=== PATIENT | female | born 1970 | race Caucasian/White ===

== ENCOUNTER 2020-09-11 07:34 | Observation (INO) ==
[2020-09-11] MEDS ORDERED: Ondansetron 4 mg VIAL 2 MG/ML 2 ml VIAL IV ONE ×2 (07:59→11:07)
[2020-09-11] MEDS ORDERED: NS 0.9% 1000 ml BAG 1,000 ML IV ONE ×2 (07:59→09:41)
[2020-09-11 08:43] LABS: ABS Lymphocytes 0.6 10^3/ul (1.0-4.8); ABS Monocytes 1.1 10^3/ul (0-0.8); ABS Neutrophils 7.9 10^3/ul (1.5-7.7); Eosinophil % 0.2 %; Hematocrit 39 % (35-47); Hemoglobin 13.6 g/dL (12.0-16.0); Lymphocyte % 6.4 %; Mean Corpuscular HGB Conc 35 g/dL (31-36); Mean Corpuscular Hemoglobin 31 pg (27-31); Mean Corpuscular Volume 88 fL (80-97); Mean Platelet Volume 8.4 fL (7.4-10.4); Nucleated Red Blood Cells % 0.1; Platelet Count 176 10^3/uL (150-450); Red Blood Count 4.43 10^6 /uL (3.70-4.87); Red Cell Distribution Width 14 % (10-15); White Blood Count 9.7 10^3/uL (3.5-10.8)
[2020-09-11 09:02] LABS: ALT 242 U/L (7-52); AST 72 U/L (13-39); Albumin 3.7 g/dL (3.2-5.2); Albumin/Globulin Ratio 1.5 (1-3); Alkaline Phosphatase 210 U/L (35-149); Anion Gap 9 mmol/L (2-11); Blood Urea Nitrogen 8 mg/dL (6-24); C Reactive Protein 33.49 mg/L (<8.01); CO2 Carbon Dioxide 25 mmol/L (22-32); Calcium 8.8 mg/dL (8.6-10.3); Chloride 100 mmol/L (101-111); EGFR African American 125.1 (>60); EGFR Non-African American 103.4 (>60); Globulin 2.5 g/dL (2-4); Glucose 127 mg/dL (70-100); Lipase < 10 U/L (11.0-82.0); Potassium 3.6 mmol/L (3.5-5.0); Sodium 134 mmol/L (135-145); Total Protein 6.2 g/dL (6.4-8.9)
[2020-09-11 09:07] LABS: Troponin I 0.06 ng/mL (<0.03)
[2020-09-11 09:31] LABS: Urine Appearance Cloudy; Urine Bilirubin 2+ (Negative); Urine Blood 2+ (Negative); Urine Color Amber; Urine Glucose Negative (Negative); Urine Ketones 1+ (Negative); Urine Nitrite Negative (Negative); Urine Protein 1+(30 mg/dL) (Negative); Urine Specific Gravity 1.023 (1.002-1.030); Urine Urobilinogen Positive (Negative)
[2020-09-11 09:36] LABS: Urine Bacteria 1+ (Absent); Urine Red Blood Cell 3+(>10/hpf) (Absent); Urine Squamous Epithelial Cell Present (Absent); Urine White Blood Cell Trace(0-5/hpf) (Absent)
[2020-09-11 09:40] LABS: INR 1.04 (0.82-1.09)
[2020-09-11] MEDS ORDERED: Morphine 4 MG/ML VIAL (1 ml) IV ONE (10:33)
[2020-09-11 11:56] LABS: Troponin I 0.23 ng/mL (<0.03)
[2020-09-11] MEDS ORDERED: Iohexol 350 (CONTRAST) 500 ML MDV IV ONE (12:49)
[2020-09-11] MEDS: Ondansetron 4 mg VIAL 2 MG/ML 2 ml VIAL IV PRN ×2 (15:44→20:38)
[2020-09-11 16:12] LABS: Troponin I 0.44 ng/mL (<0.03)
[2020-09-11] MEDS ORDERED: Vancomycin 1,000 MG in NS 0.9% 250 ml 250 ML IVPB ONE (16:39)
[2020-09-11] MEDS ORDERED: Cefepime ADVAN 1 GM in NS 0.9% 50 ML 50 ML IVPB SCH (17:00)
[2020-09-11] MEDS ORDERED: Vancomycin per Pharmacy 1 EA NOTE FOLLOW UP SCH (17:00)
[2020-09-11] MEDS: Cefepime 1 GM in Dextrose 1 GM/50 ML BAG IV SCH (17:34)
[2020-09-11 19:31] LABS: Troponin I 0.25 ng/mL (<0.03)
[2020-09-11] MEDS: NS 0.9% 1000 ml BAG 1,000 ML IV SCH (20:50)
[2020-09-11 22:31] LABS: Troponin I 0.19 ng/mL (<0.03)
[2020-09-12] MEDS: Vancomycin 1000 MG in NS 0.9% 250 ML IVPB SCH ×2 (02:09→10:51)
[2020-09-12 03:02] LABS: Hepatitis B Surface Antigen Nonreactive (Nonreactive)
[2020-09-12 03:07] LABS: Hepatitis A Ab IgM Negative (Negative); Hepatitis B Core IgM Nonreactive (Nonreactive)
[2020-09-12] MEDS: NS 0.9% 1000 ml BAG 1,000 ML IV SCH ×2 (04:31→15:18)
[2020-09-12] MEDS: Cefepime 1 GM in Dextrose 1 GM/50 ML BAG IV SCH ×2 (04:34→16:52)
[2020-09-12 05:24] LABS: ABS Lymphocytes 0.8 10^3/ul (1.0-4.8); ABS Monocytes 0.6 10^3/ul (0-0.8); ABS Neutrophils 14.9 10^3/ul (1.5-7.7); Hematocrit 34 % (35-47); Hemoglobin 11.9 g/dL (12.0-16.0); Lymphocyte % 4.7 %; Mean Corpuscular HGB Conc 35 g/dL (31-36); Mean Corpuscular Hemoglobin 31 pg (27-31); Mean Corpuscular Volume 89 fL (80-97); Mean Platelet Volume 8.2 fL (7.4-10.4); Platelet Count 156 10^3/uL (150-450); Red Blood Count 3.85 10^6 /uL (3.70-4.87); Red Cell Distribution Width 14 % (10-15); White Blood Count 16.3 10^3/uL (3.5-10.8)
[2020-09-12] MEDS: Ondansetron 4 mg VIAL 2 MG/ML 2 ml VIAL IV PRN ×3 (05:30→17:20)
[2020-09-12 05:44] LABS: Albumin 3.4 g/dL (3.2-5.2); Albumin/Globulin Ratio 1.5 (1-3); Calcium 8.4 mg/dL (8.6-10.3); EGFR African American 125.1 (>60); EGFR Non-African American 103.4 (>60); Globulin 2.3 g/dL (2-4); Potassium 3.9 mmol/L (3.5-5.0); Total Bilirubin 4.9 mg/dL (0.2-1.0); Total Protein 5.7 g/dL (6.4-8.9)
[2020-09-12 08:41] LABS: Indirect Bilirubin 1.4 mg/dL (0.3-1.0)
[2020-09-12 11:42] LABS: Hepatitis C Antibody Negative (Negative)
[2020-09-12 19:13] VITALS: BP 129/80
[2020-09-13] MEDS ORDERED: Vancomycin Trough Check NOTE FOLLOW UP ONE (09:30)
[2020-09-13 17:32] LABS: Immunoglobulin Subclass IgG4 12.6 mg/dL
[2020-09-13 19:32] LABS: B garinii/B afzelii PCR Negative (Negative); B mayonii PCR Negative (Negative)
[2020-09-13 20:11] LABS: Anaplasma phagocytophilum Negative (Negative); B. miyamotoi PCR, B Negative (Negative); Babesia divergens/MO-1 Negative (Negative); Babesia ducani Negative (Negative); Ehrlichia chaffeensis Negative (Negative); Ehrlichia ewingii/canis Negative (Negative); Ehrlichia muris eauclairensis Negative (Negative)
[2020-09-14 14:04] LABS: Mitochondria M2 Antibody <0.1 U
== END 2020-09-12 18:40 | disposition home or self-care (01) | DRG 722 ==
LOC: ED 07:34 → MED 07:34
PROVIDERS: ADMIT Internal Medicine; ATTEND Hospitalist

== ENCOUNTER 2021-02-07 08:46 | Observation (INO) ==
[2021-02-07 13:31] LABS: ABS Lymphocytes 0.6 10^3/ul (1.0-4.8); ABS Monocytes 0.9 10^3/ul (0-0.8); Eosinophil % 0.1 %; Hematocrit 39 % (35-47); Hemoglobin 13.4 g/dL (12.0-16.0); Lymphocyte % 5.1 %; Mean Corpuscular HGB Conc 34 g/dL (31-36); Mean Corpuscular Hemoglobin 29 pg (27-31); Mean Corpuscular Volume 85 fL (80-97); Mean Platelet Volume 7.7 fL (7.4-10.4); Platelet Count 343 10^3/uL (150-450); Red Blood Count 4.58 10^6 /uL (3.70-4.87); Red Cell Distribution Width 14 % (10-15); White Blood Count 12.6 10^3/uL (3.5-10.8)
[2021-02-07 13:47] LABS: Rapid COVID-19 Molecular Undetected (Undetected)
[2021-02-07 13:50] LABS: Albumin 3.9 g/dL (3.2-5.2); Albumin/Globulin Ratio 1.4 (1-3); C Reactive Protein 109.12 mg/L (<8.01); Calcium 9.2 mg/dL (8.6-10.3); Globulin 2.8 g/dL (2-4); Magnesium 1.9 mg/dL (1.9-2.7); Potassium 4.1 mmol/L (3.5-5.0); Total Bilirubin 0.4 mg/dL (0.2-1.0); Total Protein 6.7 g/dL (6.4-8.9)
[2021-02-07 13:56] LABS: Influenza A Molecular Negative (Negative); Influenza B Molecular Negative (Negative)
[2021-02-07 14:04] LABS: Urine Appearance Clear; Urine Bilirubin Negative (Negative); Urine Blood 1+ (Negative); Urine Color Yellow; Urine Glucose 3+(>=500 mg/dL) (Negative); Urine Ketones Negative (Negative); Urine Nitrite Negative (Negative); Urine Protein Negative (Negative); Urine Specific Gravity 1.013 (1.002-1.030); Urine Urobilinogen Negative (Negative)
[2021-02-07 14:10] LABS: Urine Bacteria Absent (Absent); Urine Red Blood Cell Trace(0-2/hpf) (Absent); Urine Squamous Epithelial Cell Present (Absent); Urine White Blood Cell Trace(0-5/hpf) (Absent)
[2021-02-07 14:15] LABS: Hepatitis B Surface Antigen Nonreactive (Nonreactive)
[2021-02-07 14:20] LABS: Hepatitis A Ab IgM Negative (Negative)
[2021-02-07 14:21] LABS: Hepatitis B Core IgM Nonreactive (Nonreactive)
[2021-02-07 14:33] LABS: Hepatitis C Antibody Negative (Negative)
[2021-02-07] MEDS ORDERED: Levofloxacin 750 MG IVPREMIX 750 MG/150 ML BAG IVPB ONE (16:49)
[2021-02-07] MEDS ORDERED: Azithromycin 500 mg/250 ml NS 500 MG/250 ML BAG IVPB ONE (17:03)
[2021-02-07] MEDS ORDERED: ESTRADIOL 0.05 MG/24 HR TOPICAL SCH (18:00)
[2021-02-07] MEDS: NS 0.9% 1000 ml BAG 1,000 ML IV SCH (21:45)
[2021-02-08 06:41] LABS: INR 1.04 (0.86-1.15)
[2021-02-08 06:55] LABS: Albumin 3.3 g/dL (3.2-5.2); Albumin/Globulin Ratio 1.4 (1-3); C Reactive Protein 98.78 mg/L (<8.01); Calcium 8.3 mg/dL (8.6-10.3); Globulin 2.4 g/dL (2-4); Potassium 3.8 mmol/L (3.5-5.0); Total Bilirubin 0.4 mg/dL (0.2-1.0); Total Protein 5.7 g/dL (6.4-8.9)
[2021-02-08] MEDS ORDERED: SUMAtriptan Subcut 6 MG/0.5 ML VIAL SUBCUT ONE (08:22)
[2021-02-08 08:54] LABS: Troponin I 0.01 ng/mL (<0.03)
[2021-02-08] MEDS ORDERED: fentaNYL 100 mcg/2 ml 50 MCG/ML VIAL ONE (09:55)
[2021-02-08] MEDS ORDERED: Morphine 2 MG/ML SYRINGE IV PRN (16:57)
[2021-02-08] MEDS: cefTRIAXone 1 gm/50 mL NS BAG 1 GM/50 ML BAG IVPB SCH (17:21)
[2021-02-08] MEDS ORDERED: Iohexol 350 (CONTRAST) 500 ML MDV IV ONE (17:24)
[2021-02-08 17:45] LABS: Hematocrit 35 % (35-47); Hemoglobin 11.9 g/dL (12.0-16.0); Mean Corpuscular HGB Conc 34 g/dL (31-36); Mean Corpuscular Hemoglobin 29 pg (27-31); Mean Corpuscular Volume 86 fL (80-97); Mean Platelet Volume 7.6 fL (7.4-10.4); Platelet Count 291 10^3/uL (150-450); Red Blood Count 4.07 10^6 /uL (3.70-4.87); Red Cell Distribution Width 14 % (10-15); White Blood Count 9.2 10^3/uL (3.5-10.8)
[2021-02-08 18:05] LABS: ABS Eosinophils 0.2 10^3/ul (0-0.6); ABS Lymphocytes 1.5 10^3/ul (1.0-4.8); ABS Monocytes 1.1 10^3/ul (0-0.8); ABS Neutrophils 6.3 10^3/ul (1.5-7.7); Eosinophil % 2.5 %; Lymphocyte % 16.1 %
[2021-02-08] MEDS: Morphine 2 MG/ML SYRINGE IV PRN ×2 (19:13→21:38)
[2021-02-08] MEDS: Azithromycin 500 mg/250 ml NS 500 MG/250 ML BAG IVPB SCH (19:24)
[2021-02-09 00:29] LABS: Hematocrit 31 % (35-47); Hemoglobin 10.4 g/dL (12.0-16.0)
[2021-02-09] MEDS: Morphine 2 MG/ML SYRINGE IV PRN ×8 (00:31→23:50)
[2021-02-09] MEDS: NS 0.9% 1000 ml BAG 1,000 ML IV SCH ×2 (02:53→14:05)
[2021-02-09 06:12] LABS: Hematocrit 29 % (35-47); Hemoglobin 10.1 g/dL (12.0-16.0)
[2021-02-09 06:17] LABS: INR 1.05 (0.86-1.15)
[2021-02-09 06:42] LABS: Albumin 3.6 g/dL (3.2-5.2); Albumin/Globulin Ratio 1.4 (1-3); C Reactive Protein 97.15 mg/L (<8.01); Calcium 8.7 mg/dL (8.6-10.3); Globulin 2.6 g/dL (2-4); Potassium 4.3 mmol/L (3.5-5.0); Total Bilirubin 0.4 mg/dL (0.2-1.0); Total Protein 6.2 g/dL (6.4-8.9)
[2021-02-09 11:19] LABS: Hematocrit 29 % (35-47)
[2021-02-09] MEDS: cefTRIAXone 1 gm/50 mL NS BAG 1 GM/50 ML BAG IVPB SCH (16:59)
[2021-02-09 17:34] LABS: Hematocrit 28 % (35-47); Hemoglobin 9.7 g/dL (12.0-16.0)
[2021-02-09] MEDS: Azithromycin 500 mg/250 ml NS 500 MG/250 ML BAG IVPB SCH (17:50)
[2021-02-09] MEDS: Sodium Chloride(INHALANT) 3% 4 ML NEB.SOLN INH ONE ×2 (19:14→20:00)
[2021-02-09 19:19] LABS: Calcium 9.6 mg/dL (8.6-10.3); Potassium 4.7 mmol/L (3.5-5.0)
[2021-02-09 19:23] LABS: Direct Bilirubin 0.1 mg/dL (0.03-0.18); Indirect Bilirubin 0.3 mg/dL (0.3-1.0)
[2021-02-09 23:23] LABS: Hematocrit 26 % (35-47); Hemoglobin 9.1 g/dL (12.0-16.0)
[2021-02-10] MEDS: NS 0.9% 1000 ml BAG 1,000 ML IV SCH ×2 (02:42→12:26)
[2021-02-10 09:05] LABS: Hematocrit 28 % (35-47); Hemoglobin 9.7 g/dL (12.0-16.0); Mean Corpuscular HGB Conc 35 g/dL (31-36); Mean Corpuscular Hemoglobin 30 pg (27-31); Mean Corpuscular Volume 85 fL (80-97); Mean Platelet Volume 6.9 fL (7.4-10.4); Platelet Count 329 10^3/uL (150-450); Red Blood Count 3.28 10^6 /uL (3.70-4.87); Red Cell Distribution Width 13 % (10-15); White Blood Count 12.8 10^3/uL (3.5-10.8)
[2021-02-10 09:13] LABS: INR 1.06 (0.86-1.15)
[2021-02-10 09:21] LABS: Albumin 3.7 g/dL (3.2-5.2); Albumin/Globulin Ratio 1.3 (1-3); C Reactive Protein 80.42 mg/L (<8.01); Direct Bilirubin 0.1 mg/dL (0.03-0.18); Globulin 2.8 g/dL (2-4); Indirect Bilirubin 0.3 mg/dL (0.3-1.0); Total Bilirubin 0.4 mg/dL (0.2-1.0); Total Protein 6.5 g/dL (6.4-8.9)
[2021-02-10] MEDS: Morphine 2 MG/ML SYRINGE IV PRN ×3 (10:31→17:38)
[2021-02-10 11:25] LABS: ABS Eosinophils 0.1 10^3/ul (0-0.6); ABS Lymphocytes 1.6 10^3/ul (1.0-4.8); ABS Monocytes 0.9 10^3/ul (0-0.8); ABS Neutrophils 10.2 10^3/ul (1.5-7.7); Lymphocyte % 12.3 %
[2021-02-10] MEDS ORDERED: Sodium Chloride(INHALANT) 3% 4 ML NEB.SOLN INH ONE (12:44)
[2021-02-10] MEDS ORDERED: Sodium Chloride(INHALANT) 7% 4 ML NEB.SOLN INH ONE (13:11)
[2021-02-10] MEDS: Azithromycin 500 mg/250 ml NS 500 MG/250 ML BAG IVPB SCH (15:38)
[2021-02-10 16:05] LABS: TSH Ultra Thyroid Stim Horm 1.16 mcIU/mL (0.34-5.60)
[2021-02-10 16:07] LABS: Cryptococcus Antigen w/Titer Negative (Negative)
[2021-02-10 16:07] LABS: Free T4 0.99 ng/dL (0.61-1.12)
[2021-02-10] MEDS: cefTRIAXone 1 gm/50 mL NS BAG 1 GM/50 ML BAG IVPB SCH (16:48)
[2021-02-10 18:31] LABS: Mitochondria M2 Antibody <0.1 U
[2021-02-10 18:56] LABS: Calcium 9.1 mg/dL (8.6-10.3); Potassium 3.8 mmol/L (3.5-5.0)
[2021-02-10] MEDS ORDERED: Polyethylene Glycol 3350 17 GM PACKET PO PRN (19:52)
[2021-02-11] MEDS: NS 0.9% 1000 ml BAG 1,000 ML IV SCH ×3 (00:02→09:20)
[2021-02-11] MEDS: Morphine 2 MG/ML SYRINGE IV PRN ×5 (00:30→19:26)
[2021-02-11] MEDS: SUMAtriptan Subcut 6 MG/0.5 ML VIAL SUBCUT PRN (08:49)
[2021-02-11 10:39] LABS: ABS Eosinophils 0.1 10^3/ul (0-0.6); ABS Monocytes 1.2 10^3/ul (0-0.8); ABS Neutrophils 11.5 10^3/ul (1.5-7.7); Eosinophil % 0.7 %; Hematocrit 29 % (35-47); Hemoglobin 9.7 g/dL (12.0-16.0); Mean Corpuscular HGB Conc 34 g/dL (31-36); Mean Corpuscular Hemoglobin 29 pg (27-31); Mean Corpuscular Volume 85 fL (80-97); Mean Platelet Volume 6.8 fL (7.4-10.4); Platelet Count 356 10^3/uL (150-450); Red Blood Count 3.37 10^6 /uL (3.70-4.87); Red Cell Distribution Width 13 % (10-15); White Blood Count 13.7 10^3/uL (3.5-10.8)
[2021-02-11 10:41] LABS: Cytomegalovirus IgG Antibody Negative (Negative); EBV Capsid Ag IgG Ab Positive (Negative); EBV Capsid Ag IgM Ab Negative (Negative); Epstein-Barr Nuclear Antigen Positive (Negative); Toxoplasma IgG Antibody Negative (Negative); Toxoplasma IgG Antibody Index <3 IU/mL; Toxoplasma IgM Antibody Negative (Negative)
[2021-02-11 10:46] LABS: INR 1.1 (0.86-1.15)
[2021-02-11 10:54] LABS: Albumin 3.6 g/dL (3.2-5.2); Albumin/Globulin Ratio 1.3 (1-3); C Reactive Protein 88.45 mg/L (<8.01); Direct Bilirubin 0.1 mg/dL (0.03-0.18); Globulin 2.7 g/dL (2-4); Indirect Bilirubin 0.4 mg/dL (0.3-1.0); Total Bilirubin 0.5 mg/dL (0.2-1.0); Total Protein 6.3 g/dL (6.4-8.9)
[2021-02-11 14:23] LABS: Ferritin 97.9 ng/mL (11-307)
[2021-02-11] MEDS: Azithromycin 500 mg/250 ml NS 500 MG/250 ML BAG IVPB SCH (15:55)
[2021-02-11 16:02] LABS: Hematocrit 29 % (35-47); Hemoglobin 10.2 g/dL (12.0-16.0)
[2021-02-11 16:23] LABS: Troponin I 0.01 ng/mL (<0.03)
[2021-02-11] MEDS: cefTRIAXone 1 gm/50 mL NS BAG 1 GM/50 ML BAG IVPB SCH (17:05)
[2021-02-11 17:12] LABS: Albumin 3.9 g/dL (3.2-5.2); Albumin/Globulin Ratio 1.3 (1-3); Direct Bilirubin 0.1 mg/dL (0.03-0.18); Indirect Bilirubin 0.4 mg/dL (0.3-1.0); Total Bilirubin 0.5 mg/dL (0.2-1.0); Total Protein 6.9 g/dL (6.4-8.9)
[2021-02-11 19:10] LABS: Calcium 9.1 mg/dL (8.6-10.3); Potassium 4.1 mmol/L (3.5-5.0)
[2021-02-11 19:11] LABS: Troponin I 0.01 ng/mL (<0.03)
[2021-02-12 07:03] LABS: ABS Eosinophils 0.1 10^3/ul (0-0.6); ABS Lymphocytes 2.1 10^3/ul (1.0-4.8); ABS Monocytes 1.3 10^3/ul (0-0.8); ABS Neutrophils 9.2 10^3/ul (1.5-7.7); Eosinophil % 0.7 %; Hematocrit 27 % (35-47); Hemoglobin 9.2 g/dL (12.0-16.0); Lymphocyte % 16.5 %; Mean Corpuscular HGB Conc 34 g/dL (31-36); Mean Corpuscular Hemoglobin 29 pg (27-31); Mean Corpuscular Volume 85 fL (80-97); Mean Platelet Volume 6.9 fL (7.4-10.4); Nucleated Red Blood Cells % 0.1; Platelet Count 339 10^3/uL (150-450); Red Blood Count 3.15 10^6 /uL (3.70-4.87); Red Cell Distribution Width 13 % (10-15); White Blood Count 12.8 10^3/uL (3.5-10.8)
[2021-02-12 07:13] LABS: INR 1.14 (0.86-1.15)
[2021-02-12 07:23] LABS: ALT 182 U/L (7-52); AST 35 U/L (13-39); Albumin 3.4 g/dL (3.2-5.2); Albumin/Globulin Ratio 1.4 (1-3); Alkaline Phosphatase 196 U/L (35-149); C Reactive Protein 120.19 mg/L (<8.01); Globulin 2.5 g/dL (2-4); Total Protein 5.9 g/dL (6.4-8.9)
[2021-02-12] MEDS: SUMAtriptan Subcut 6 MG/0.5 ML VIAL SUBCUT PRN (07:52)
[2021-02-12] MEDS: Morphine 2 MG/ML SYRINGE IV PRN ×2 (08:40→21:09)
[2021-02-12] MEDS ORDERED: ESTRADIOL 0.05 MG/24 HR TOPICAL SCH (09:00)
[2021-02-12 12:42] LABS: Rapid COVID-19 Molecular Undetected (Undetected)
[2021-02-12] MEDS ORDERED: Lidocaine 2% (CARDIAC or IV) 20 MG/ML 5 ML SYRINGE (100 MG) ONE (13:27)
[2021-02-12] MEDS ORDERED: Lidocaine 1% VIAL 10 MG/ML VIAL ONE (13:27)
[2021-02-12] MEDS ORDERED: Lidocaine 2% JELLY 20 ML (for OR use) ONE (13:27)
[2021-02-12] MEDS ORDERED: Lidocaine 2% PF 5 ML VIAL ONE ×2 (13:29→14:32)
[2021-02-12] MEDS ORDERED: Midazolam 2 mg/2 ml VIAL 1 mg/ml 2 ml VIAL (2 mg) ONE (14:11)
[2021-02-12] MEDS ORDERED: fentaNYL 100 mcg/2 ml 50 MCG/ML VIAL ONE (14:32)
[2021-02-12] MEDS ORDERED: Succinylcholine 200 mg VIAL 20 mg/ml 10 ml VIAL (200 mg) ONE (14:32)
[2021-02-12] MEDS ORDERED: Propofol 10 MG/ML 20 ML BTL ONE (14:32)
[2021-02-12] MEDS ORDERED: Ondansetron 4 mg VIAL 2 MG/ML 2 ml VIAL ONE (14:41)
[2021-02-12] MEDS ORDERED: Dexamethasone IV 4 MG/ML VIAL 1 ml VIAL ONE (14:41)
[2021-02-12] MEDS ORDERED: oxyCODONE/Acetamin 5/325 mg TAB PO PRN (14:50)
[2021-02-12] MEDS ORDERED: DiMENhydriNATE IV 50 mg/ml 1 ml VIAL IV PUSH PRN (14:50)
[2021-02-12] MEDS ORDERED: fentaNYL 100 mcg/2 ml 50 MCG/ML VIAL IV PRN (14:50)
[2021-02-12] MEDS ORDERED: Naloxone 0.4 mg VIAL 0.4 mg/ml 1 ml VIAL IV PRN (14:50)
[2021-02-12 15:27] LABS: CMV DNA DETECT/QT, P Undetected IU/mL (Undetected)
[2021-02-12 15:39] LABS: Body Fluid Source OTH
[2021-02-12 16:12] LABS: Body Fluid Source OTH
[2021-02-12 16:34] LABS: Body Fluid Appearance Bloody; Body Fluid Appearance Cloudy; Body Fluid Color Pink; Body Fluid Color Red
[2021-02-12] MEDS: cefTRIAXone 1 gm/50 mL NS BAG 1 GM/50 ML BAG IVPB SCH (16:36)
[2021-02-12 17:07] LABS: Urine Appearance Clear; Urine Bilirubin Negative (Negative); Urine Blood 1+ (Negative); Urine Color Straw; Urine Glucose Negative (Negative); Urine Ketones Negative (Negative); Urine Nitrite Negative (Negative); Urine Protein Negative (Negative); Urine Specific Gravity 1.006 (1.002-1.030); Urine Urobilinogen Negative (Negative)
[2021-02-12 17:15] LABS: Urine Amorphous Crystals Present (Absent); Urine Bacteria Absent (Absent); Urine Red Blood Cell Trace(0-2/hpf) (Absent); Urine Squamous Epithelial Cell Present (Absent); Urine White Blood Cell Absent (Absent)
[2021-02-12 18:12] LABS: Body Fluid Mono 22 %; Body Fluid Total Cells Counted 300
[2021-02-12] MEDS ORDERED: Sodium Chloride(INHALANT) 3% 4 ML NEB.SOLN INH ONE (18:17)
[2021-02-12 18:26] LABS: Body Fluid Mono 6 %; Body Fluid Total Cells Counted 300
[2021-02-13] MEDS: Morphine 2 MG/ML SYRINGE IV PRN ×3 (03:21→23:52)
[2021-02-13 06:44] LABS: ABS Monocytes 1.3 10^3/ul (0-0.8); ABS Neutrophils 15.4 10^3/ul (1.5-7.7); Eosinophil % 0.1 %; Hematocrit 28 % (35-47); Hemoglobin 9.9 g/dL (12.0-16.0); Lymphocyte % 5.8 %; Mean Corpuscular HGB Conc 35 g/dL (31-36); Mean Corpuscular Hemoglobin 29 pg (27-31); Mean Corpuscular Volume 84 fL (80-97); Mean Platelet Volume 7.2 fL (7.4-10.4); Platelet Count 403 10^3/uL (150-450); Red Blood Count 3.39 10^6 /uL (3.70-4.87); Red Cell Distribution Width 13 % (10-15); White Blood Count 17.8 10^3/uL (3.5-10.8)
[2021-02-13 07:06] LABS: Albumin 3.6 g/dL (3.2-5.2); Albumin/Globulin Ratio 1.3 (1-3); C Reactive Protein 113.19 mg/L (<8.01); Calcium 9.1 mg/dL (8.6-10.3); Globulin 2.7 g/dL (2-4); Magnesium 2.2 mg/dL (1.9-2.7); Potassium 4.4 mmol/L (3.5-5.0); Total Bilirubin 0.6 mg/dL (0.2-1.0); Total Protein 6.3 g/dL (6.4-8.9)
[2021-02-13 13:07] LABS: SS-A/Ro Antibody <0.2 U; SS-B/La Antibody <0.2 U; Scleroderma Ab <0.2 U; Sm (Smith) IgG Antibody <0.2 U; U1 RNP IgG Autoabs <0.2 U
[2021-02-13] MEDS ORDERED: Gadoteridol (CONTRAST) 279.3 MG/ML 10 ML IV ONE (15:53)
[2021-02-13] MEDS: cefTRIAXone 1 gm/50 mL NS BAG 1 GM/50 ML BAG IVPB SCH (16:45)
[2021-02-13 17:33] LABS: Cyclic Citrullinated Pept IgG <15.6 U
[2021-02-13 17:55] LABS: HSV 1 DNA NOT DETECTED; HSV 2 DNA NOT DETECTED; Source SERUM
[2021-02-14] MEDS: Morphine 2 MG/ML SYRINGE IV PRN (05:27)
[2021-02-14 05:36] LABS: Hematocrit 27 % (35-47); Hemoglobin 9.5 g/dL (12.0-16.0); Mean Corpuscular HGB Conc 35 g/dL (31-36); Mean Corpuscular Hemoglobin 29 pg (27-31); Mean Corpuscular Volume 84 fL (80-97); Mean Platelet Volume 7.1 fL (7.4-10.4); Platelet Count 394 10^3/uL (150-450); Red Blood Count 3.27 10^6 /uL (3.70-4.87); Red Cell Distribution Width 13 % (10-15); White Blood Count 15.8 10^3/uL (3.5-10.8)
[2021-02-14 05:56] LABS: Calcium 8.9 mg/dL (8.6-10.3)
[2021-02-14 08:00] LABS: C Reactive Protein 69.71 mg/L (<8.01)
[2021-02-14 11:44] LABS: Myeloperoxidase Antibody <0.2 U; Proteinase 3 <0.2 U
[2021-02-14 11:52] VITALS: BP 132/61
[2021-02-14 17:30] LABS: Soluble Liver Antigen IgG <20.1 U
[2021-02-16 20:52] LABS: Case Number CR-21-71149
[2021-02-21 14:00] LABS: 6Methylmercaptopurine Riboside 5.19 nmol/mL/h (5.04-9.57)
== END 2021-02-14 15:00 | disposition home or self-care (01) | DRG 346 ==
LOC: MED 08:46 → ED 08:46 → SUATTDRO 17:49 → MED 02-08 01:13
PROVIDERS: ADMIT Hospitalist; ATTEND Internal Medicine